=== PATIENT | male | born 1945 | race Caucasian/White ===

== ENCOUNTER 2016-09-03 18:50 | Emergency (ER) | payer MEDICARE, BC ==
[2016-09-03 19:27] LABS: BASOPHILS 0.1 % (0-2); EOSINOPHILS 2.8 % (0-7); HEMATOCRIT 48.7 % (42.0-54.0); HEMOGLOBIN 16.3 g/dL (13.5-17.5); LYMPHOCYTES 32.7 % (15-50); MCH 31.8 pg (26.0-34.0); MCHC 33.5 g/dL (31.0-37.0); MCV 94.9 fL (80.0-100.0); MEAN PLATELET VOLUME 9.9 fL (7.4-10.4); MONOCYTES 7.5 % (2-11); NEUTROPHILS 56.9 % (40-80); PLATELET COUNT 191 10x3/uL (130-400); RBC 5.13 10x6/uL (4.20-6.10); RDW 12.5 % (11.5-14.5); WBC 7.4 10x3/uL (4.8-10.8)
[2016-09-03 19:43] LABS: ALBUMIN 4.4 g/dL (3.4-5.0); ANION GAP 9.5 mmol/L (8-16); BILIRUBIN - TOTAL 0.45 mg/dL (0.2-1.3); CALCIUM 9.3 mg/dL (8.5-10.1); CARBON DIOXIDE 31.5 mmol/L (21.0-32.0); CREATININE - SERUM 1.2 mg/dL (0.6-1.3)
[2016-09-03 19:48] LABS: APPEARANCE CLEAR (CLEAR); BILIRUBIN NEGATIVE (NEGATIVE); COLOR YELLOW (YELLOW); GLUCOSE NEGATIVE (NEGATIVE); KETONE NEGATIVE (NEGATIVE); LEUKOCYTE ESTERASE NEGATIVE (NEGATIVE); NITRITE NEGATIVE (NEGATIVE); PH 7.5 (5.0-6.0); PROTEIN 1+ mg/dL (NEGATIVE); UROBILINOGEN NORMAL (NORMAL); WHITE CELLS - URINE NSEEN /hpf (0-5)
== END 2016-09-03 20:31 | disposition home or self-care (01) ==
LOC: D.ER 18:50
PROVIDERS: Emergency Medicine
DX: N20.1 Calculus of ureter (principal); R30.0 Dysuria; R31.9 Hematuria, unspecified

== ENCOUNTER 2016-09-17 13:13 | Day surgery (SDC) | payer MEDICARE, BC ==
[2016-09-17 11:18] LABS: APPEARANCE CLOUDY (CLEAR); COLOR YELLOW-RED (YELLOW); GLUCOSE 250 mg/dL (NEGATIVE); LEUKOCYTE ESTERASE 1+ (NEGATIVE); NITRITE NEGATIVE (NEGATIVE); PROTEIN 1+ mg/dL (NEGATIVE); SPECIFIC GRAVITY 1.015 (1.005-1.020)
[2016-09-17 11:19] LABS: BACTERIA MODERATE /hpf (NONE SEEN); BILIRUBIN NEGATIVE (NEGATIVE); EPITHELIAL CELLS RARE /hpf (0-5); KETONE NEGATIVE (NEGATIVE); MUCUS <1+ /lpf (NONE SEEN); RED CELLS - URINE >50 /hpf (0-5)
[2016-09-17 11:21] LABS: BASOPHILS 0.1 % (0-2); EOSINOPHILS 0.8 % (0-7); HEMATOCRIT 47.5 % (42.0-54.0); HEMOGLOBIN 15.7 g/dL (13.5-17.5); IMMATURE GRANULOCYTES 0.2 % (0-5); LYMPHOCYTES 17.3 % (15-50); MCH 31.6 pg (26.0-34.0); MCHC 33.1 g/dL (31.0-37.0); MCV 95.6 fL (80.0-100.0); MEAN PLATELET VOLUME 9.9 fL (7.4-10.4); NEUTROPHILS 69.6 % (40-80); PLATELET COUNT 191 10x3/uL (130-400); RBC 4.97 10x6/uL (4.20-6.10); RDW 12.5 % (11.5-14.5); WBC 10.9 10x3/uL (4.8-10.8)
[2016-09-17 11:39] LABS: ALBUMIN 3.7 g/dL (3.4-5.0); ANION GAP 10.7 mmol/L (8-16); BILIRUBIN - TOTAL 1.23 mg/dL (0.2-1.3); CARBON DIOXIDE 30.2 mmol/L (21.0-32.0); CREATININE - SERUM 1.9 mg/dL (0.6-1.3); POTASSIUM - SERUM 3.9 mmol/L (3.5-5.1); PROTEIN - SERUM 7.4 g/dL (6.4-8.2)
[2016-09-17] MEDS ORDERED: FLOMAX0.4 MG PO (17:42)
[2016-09-17] MEDS ORDERED: HYDROCODON-ACE1 EAC7 PO (17:43)
--- NOTE | 2016-09-17 17:45 | NUR ---
PATIENT WALKS TO BATHROOM WITH STAND-BY NURSING ASSISTANCE, URINATES LARGE AMOUNT PINK URINE IN TOILET, WALKS BACK TO BED. LEFT HAND PIV DC'D WITH TIP INTACT. PATIENT DRESSING IN PERSONAL CLOTHING WITH SPOUSE ASSISTING
--- NOTE | 2016-09-17 18:00 | NUR ---
PATIENT SITTING ON SIDE OF BED, DRESSED IN PERSONAL CLOTHING. DISCHARGE INSTRUCTIONS REVIEWED WITH PATIENT AND SPOUSE. DISCHARGED HOME VIA WHEELCHAIR TO PRIVATE VEHICLE
--- NOTE | 2016-09-18 08:42 | OP ---
PATIENT NAME: RANJEET REED MEDICAL RECORD: [id number] :47 LOCATION:[facility]- ADMISSION DATE:09/17/16 SURGEON: MJ HAZEL MD DATE OF OPERATION: 09/17/2016 SURGEON: Mj Hazel MD ANESTHESIA: General anesthesia by Amarjit aM CRNA PREOPERATIVE DIAGNOSIS: Left distal ureteral stone, 4 mm. PROCEDURE: Cystoscopy, left ureteroscopy and stone extraction, left ureteral stent insertion 6-Portuguese x 26 cm with string attached. FINDINGS: Radiodense left distal ureteral 4 mm stone. SPECIMENS: Left ureteral stone. ESTIMATED BLOOD LOSS: None. CLINICAL HISTORY: This is a patient is a 71-year-old male with a prior history of kidney stones, which up to now been on the right side. These have all been treated by Dr. Hsieh. The patient has just returned from a trip to [place]. He has been suffering with left-sided flank pain radiating to the testicle for 1 week. One week ago, he came to the Emergency Room and a CT scan showed a stone in the left ureter. It was reported as 4 mm in size. He was given pain medications and Flomax. Today, he could not tolerate the pain. He called Dr. Hsieh' s office and Dr. Hsieh is away on vacation. The patient therefore called my office. He came to the Emergency Room and a repeat CT scan showed that the stone has migrated to the distal ureter where it is causing edema. He does have bilateral renal stones, which are 2-3 mm in size, nonobstructive. There are also gallstones noted. He comes now to have the ureteral stone removed by ureteroscopy. He has no allergies to medication. He was given Ancef 1 gram IV control room helper to the OR. DESCRIPTION OF PROCEDURE: The patient was given induction of general anesthesia. He was placed in dorsal lithotomy position, prepped and draped. A 21-Portuguese cystoscope was used with 30-degree lens for visualization. I did dilate the urethral meatus to 26-Portuguese using male sounds. Penile urethra was normal. 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 Inside the bladder, there were single ureteral orifices. There is mild trabeculation of the bladder. No bladder tumors were seen. We introduced an open-ended ureteral catheter into the left ureteral orifice. On fluoroscopy, we could see the stone as radiodensity. The ureteral catheter ended-up against the stone. A Glidewire was able to get around the stone and up into the renal pelvis. This allowed us to push the ureteral catheter and farther and moved the stone proximally somewhat. With the ureteral catheter in the left ureteral orifice and part way up the left ureter, we then exchanged a Sensor wire for the Glidewire. Once the Sensor wire was in place in the renal pelvis, we then removed the open-ended ureteral catheter entirely. A 21-Portuguese x 4 cm ureteral dilation balloon was inserted into the left ureteral orifice. The balloon was inflated with 18 atmospheres of pressure. The pressure was maintained for only a few seconds and then the balloon was deflated entirely and withdrawn. Because of the patient's obstructive prostate, I did not want to traumatize his urethra. The wire was OPERATIVE REPORT [id number] RANJEET REED left in place while the cystoscope lens was removed. The cystoscope sheath remained in place. We then inserted the rigid ureteroscope and going beside the wire, we could identify the stone in the ureter. A 4-wire basket was placed around the stone and the stone basket and scope were removed as a unit. The stone was sent to pathology for stone analysis. We then backloaded the wire into the cystoscope. The ureteral stent was inserted into position. The wire was then withdrawn entirely once the stent was in correct position. The distal end of the stent was pushed into the bladder using the pusher. The bladder was then completely emptied and the cystoscope removed. The string on the distal end of the stent is maintained. It hangs from the urethral meatus. The string was tied to itself in a knot and cut shorter. The patient was awakened and brought to recovery room. He will be discharge home today with a prescription for [place] and Flomax. I will see him in followup in about 3 days' time in the office to remove the stent by pulling on the string. TRANSINT:[id number] Voice Confirmation ID: [id number] DOCUMENT ID: [id number] MJ HAZEL MD at 0842 CC: [id number] DICTATION DATE: 09/17/16 1557 VISITING TEACHER: 09/18/16 0010 DIS IN 09/17/16 [facility] [address] [place] [address]
== END 2016-09-17 18:00 | disposition home or self-care (01) ==
LOC: OBSVTIME → D.OPS 13:13 → D.MS 13:34 → D.ER 13:34 → OBSVTIME 13:34 → EDSTATUS 15:00 → D.ER 15:09 → D.SDCHOLD 16:19 → D.MS 16:19 → D.OPS 18:00 → D.SDCHOLD 18:00
PROVIDERS: Emergency Medicine; Urology
DX: N20.1 Calculus of ureter (principal); Z87.442 Personal history of urinary calculi; E03.9 Hypothyroidism, unspecified; K57.30 Diverticulosis of large intestine without perforation or abscess without bleeding; K80.20 Calculus of gallbladder without cholecystitis without obstruction; Z01.812 Encounter for preprocedural laboratory examination

== ENCOUNTER 2016-09-24 05:30 | Day surgery (SDC) | payer MEDICARE, BC ==
[2016-09-23 13:55] LABS: HEMATOCRIT 46.3 % (42.0-54.0); HEMOGLOBIN 14.7 g/dL (13.5-17.5); MCH 31.2 pg (26.0-34.0); MCHC 31.7 g/dL (31.0-37.0); MCV 98.3 fL (80.0-100.0); RBC 4.71 10x6/uL (4.20-6.10); RDW 12.2 % (11.5-14.5)
[~2016-09-24] VITALS: Ht 185.4 cm; Wt 84.8 kg
[~2016-09-24 05:30] MED LIST: FISH OIL 1,2001 CAP PO; FLOMAX0.4 MG PO; HYDROCODON-ACE1 EAC7 PO; LEVOTHYROXINE75 MCG PO; VITAMIN B COMPL1 TAB PO
[2016-09-24 13:07] VITALS: BP 137/69; Ht 185.4 cm; Wt 84.8 kg
--- NOTE | 2016-09-24 15:40 | NUR ---
PATIENT IS DRESSED IN PERSONAL CLOTHING AND HAS NO COMPLAINTS, DISCHARGE INSTRUCTIONS REVIEWED AND GIVEN, DISCHARGED HOME VIA WHEELCHAIR TO PRIVATE VEHICLE WITH SPOUSE
== END 2016-09-24 15:40 | disposition home or self-care (01) ==
LOC: D.OPS 05:30 → D.PAN 14:00 → D.OPS 15:40
PROVIDERS: Anesthesiology
DX: N20.1 Calculus of ureter (principal); K21.9 Gastro-esophageal reflux disease without esophagitis; Z01.812 Encounter for preprocedural laboratory examination

== ENCOUNTER → 2016-11-04 09:57 | Outpatient (CLI) | payer MEDICARE, BC ==
[2016-09-24 13:07] VITALS: BMI 24.7
[2016-11-04 10:46] LABS: CALC OSMOLALITY 280 mosm/kg (275-300); CALCIUM 8.3 mg/dL (8.5-10.1); CARBON DIOXIDE 31.2 mmol/L (21.0-32.0); CHLORIDE - SERUM 105 mmol/L (98-107); CREATININE - SERUM 0.9 mg/dL (0.6-1.3); GLUCOSE 136 mg/dL (74-106); POTASSIUM - SERUM 4.2 mmol/L (3.5-5.1); SODIUM 139 mmol/L (136-145); UREA NITROGEN 15 mg/dL (7-18); eGFR NON AFRICAN AMERICAN 89 mL/min (90-120)
== END | disposition home or self-care (01) ==
LOC: D.LAB 09:57
PROVIDERS: Urology
DX: E21.3 Hyperparathyroidism, unspecified (principal)

== ENCOUNTER → 2018-07-06 10:07 | Outpatient (CLI) | payer MEDICARE, BC ==
[2016-09-24 13:07] VITALS: BMI 24.7
== END | disposition home or self-care (01) ==
LOC: D.HCCARDIO 10:07
PROVIDERS: ATTEND Internal Medicine Cardiovascular Disease
DX: R07.9 Chest pain, unspecified (principal); I20.9 Angina pectoris, unspecified

== ENCOUNTER 2018-07-22 10:59 | Outpatient (CLI) | payer MEDICARE, BC ==
[~2018-07-22] VITALS: Ht 185.4 cm; Wt 84.1 kg
--- NOTE | ~2018-07-22 | HEMODYNAMI ---
PATIENT:RANJEET REED MEDICAL RECORD: [id number] : 47 [facility] ADMISSION DATE: 07/22/18 Generatedon:07/22/201814:01 Patient name: RANJEET REED Patient #: [id number] SSN: DO B: 1945 Date of study: 07/22/2018 Page: Of Hemodynamic Procedure Report Patient Data Patient Demographics Procedure consent was obtained First Name: RANJEET Gender: Male Last Name: DEREK : 1945 Middle Initial: E Age: 73 year(s) Patient #: [id number] Race: Unknown Additional ID: [id number] Contact details [address]: [address] [place] [address] State: [place] City: [place] Zip code: [address] Admission Admission Data Admission Date: 07/22/2018 Admission Time: 10:59 Procedure Procedure Types Cath Procedure Diagnostic Procedure LHC LHC w/Coronaries FFR/IVUS Intra-Coronary IVUS Initial Sedation Charges Moderate Sedation up to 15 minutes Procedure Description Procedure Date Procedure Date: 07/22/2018 Procedure Start Time: 13:19 Procedure End Time: 13:57 Procedure Staff Name Function Ellis Cardoso MD Performing Physician Cheri Katz RT Monitor Casey Flores RT Scrub Isaias Eisenberg RN Nurse Procedure Data Cath Procedure Fluoroscopy Diagnostic fluoroscopy Total fluoroscopy Time: 3.7 time: 3.7 min min Diagnostic fluoroscopy Total fluoroscopy dose: 766 dose: 766 mGy mGy Contrast Material Contrast Material Type Amount (ml) Isovue 300 96 Entry Location Entry Primary Successful Side Size Upsize Upsize Entry Closure Succes sful Closure Location (Fr) 1 (Fr) 2 (Fr) Remarks Device Remarks Femoral Right 5 Fr 6 Fr Exoseal artery Short Estimated blood loss: 5 ml Diagnostic catheters Device Type Used For End Catheter Placement DIAGNOSTIC AR MOD 5Fr Multi-vessel Catheter ([id number]) Angiography Procedure Complications No complications Procedure Medications Medication Administration Route Dosage Oxygen etCO2 Nasal cannula 2 l/min Lidocaine 2% added to field 20 Heparin Flush Bag added to field 2 bags (1000units/500ml NS) 0.9% NaCl I.V. 100 ml/hr Radial Cocktail added to field 1 syringe (Verapomil 2mg/Nitro 400mcg/Heparin 1500units) Versed I.V. 1 mg Fentanyl I.V. 50 mcg Versed I.V. 1 mg Fentanyl I.V. 50 mcg Heparin Bolus I.V. 5000 units Hemodynamics Rest Heart Rate: 56 (bpm) Pressure Samples Time Site Value (mmHg) Purpose Heart Use Rate(bpm) 13:33 LV 200/3,40 Snapshot 70 Snapshots Pre Cath Intra NCS Post Cath Vital Signs Time Heart Resp SPO2 etCO2 NIBP (mmHg) Rhythm Pain Sedation Rate (ipm) (%) (mmHg) Status Level (bpm) 13:07:28 52 16 100 0 163/85(108) NSR 0 (11) 10(A) , No pain 13:12:44 53 13 94 26.8 167/91(116) NSR 0 (11) 10(A) , No pain 13:17:04 54 11 96 0 153/82(105) NSR 0 (11) 9(A) , No pain 13:21:22 54 12 96 0 153/75(96) NSR 0 (11) 9(A) , No pain 13:25:40 55 10 97 0 153/76(135) NSR 0 (11) 9(A) , No pain 13:29:52 57 11 93 0 155/89(120) NSR 0 (11) 9(A) , No pain 13:34:10 60 10 96 0 148/80(114) NSR 0 (11) 9(A) , No pain 13:38:24 59 11 97 0 147/82(126) NSR 0 (11) 9(A) , No pain 13:42:40 59 12 97 46.2 153/75(97) NSR 0 (11) 9(A) , No pain 13:46:54 59 12 98 29.8 145/83(102) NSR 0 (11) 9(A) , No pain 13:51:08 59 12 98 40.3 147/75(138) NSR 0 (11) 9(A) , No pain 13:56:15 57 12 98 25.3 145/78(92) NSR 0 (11) 10(A) , No pain Medications Time Medication Route Dose Verified Delivered Reason Not es Effectiveness by by 13:07:52 Oxygen etCO2 2 l/min Ellis Buffie used for Nasal Phoenix Eisenberg RN procedure cannula 13:08:00 Lidocaine 2% added 20ml Ellis Buffie used for to vial Phoenix Eisenberg RN procedure field 13:08:10 Heparin Flush added 2 bags Ellis Buffie used for Bag to Phoenix Eisenberg RN procedure (1000units/500ml field NS) 13:08:21 0.9% NaCl I.V. 100 Ellis Buffie Per physician ml/hr Phoenix Eisenberg RN 13:08:30 Radial Cocktail added 1 Ellis Ellis for was robert. (Verapomil to syringe Phoenix Cardoso MD vasodilation 2mg/Nitro field 400mcg/Heparin 1500units) 13:08:42 Versed I.V. 1 mg Ellis Buffie for sedation Phoenix Eisenberg RN 13:08:47 Fentanyl I.V. 50 mcg Ellis Buffie for sedation Phoenix Eisenberg RN 13:11:43 Versed I.V. 1 mg Ellis Buffie for sedation Phoenix Eisenberg RN 13:11:47 Fentanyl I.V. 50 mcg Ellis Buffie for sedation Phoenix Eisenberg RN 13:44:20 Heparin Bolus I.V. 5000 Ellis Buffie for for IVUS units Phoenix Eisenberg RN anticoagulation , verified with dr cardoso Procedure Log Time Note 12:48:30 Diagnostic Cath Status : Elective 12:48:58 Cheri Katz RT(R) sent for patient. Start room use. 12:48:59 Time tracking: Regular hours (M-F 7:00 - 5:00) 12:49:04 Plan of Care:Hemodynamics will remain stable., Cardiac rhythm will remain stable., Comfort level will be maintained., Respiratory function will remain adequate., Patient/ family verbilizes understanding of procedure., Procedure tolerated without complication., Recovers from procedure without complications.. 13:07:13 Patient received from Pre/Post Procedure Room to CCL 2 Alert and oriented. Tansferred to table in Supine position. 13:07:14 Warm blankets applied, and luna hugger turned on for patient comfort. 13:07:15 Correct patient and procedure confirmed by team. 13:07:16 Signed procedure consent form obtained from patient. 13:07:17 ECG and BP/O2 sat monitors applied to patient. 13:07:18 Vital chart was started 13:07:19 Baseline sample Acquired. 13:07:22 Rhythm: sinus rhythm 13:07:24 Full Disclosure recording started 13:07:28 H&P Date Dictated: 07/22/2018 Within 30 days and on chart., H&P Addendum completed by physician on day of procedure. (MUST COMPLETE FOR ALL OUTPATIENTS). 13:07:29 Pre-procedure instructions explained to patient. 13:07:30 Pre-op teaching completed and patient verbalized understanding. 13:07:32 Family in patients room. 13:07:34 Patient NPO since Midnight. 13:07:35 Is the patient allergic to Iodine/contrast media? No. 13:07:36 Was the patient premedicated? No 13:07:37 Is patient on blood thinner?No 13:07:44 Patient diabetic? No. 13:07:47 Previous problem with sedation/anesthesia? No ? 13:07:48 Snore? Yes 13:07:49 Sleep apnea? No 13:07:50 Deviated septum? No 13:07:51 Opens mouth fully? Yes 13:07:51 Sticks out tongue? Yes 13:07:52 Oxygen 2 l/min etCO2 Nasal cannula was administered by Isaias Eisenberg RN; used for procedure; 13:07:53 Airway obstruction? No ? 13:07:56 Dentures? No ? 13:07:59 Pre procedure: right dorsailis pedis pulse 2+ Normal; easily identifiable; not easily obliterated 13:08:00 Lidocaine 2% 20ml vial added to field was administered by Isaias Eisenberg RN; used for procedure; 13:08:01 Pre procedure: left dorsailis pedis pulse 2+ Normal; easily identifiable; not easily obliterated 13:08:03 Patient pain scale 0/10 ?. 13:08:08 IV patent on arrival in left forearm with 0.9% NaCl at [facility]. 13:08:10 Heparin Flush Bag (1000units/500ml NS) 2 bags added to field was administered by Isaias Eisenberg RN; used for procedure; 13:08:10 Lab results completed and on chart. 13:08:16 Right Radial & Right Groin area was prepped with chlora-prep and draped in sterile fashion 13:08:17 Alarms reviewed by R. N. 13:08:18 Sharps counted by scrub and verified by R.N. 13:08:19 Physician arrived 13:08:20 --------ALL STOP TIME OUT------ 13:08:20 Final Timeout: patient, procedure, and site verified with staff and physician. All members of the team are in agreement. 13:08:21 0.9% NaCl 100 ml/hr I.V. was administered by Isaias Eisenberg RN; Per physician; 13:08:22 Right Radial & Right Groin site verified by team. 13:08:26 Maximum allowable Isovue 300 dose 300ml. Physician notified. (300ml for normal creatinines. For patients with creatinine of 1.7 or higher multiply weight(kg) x 5 divided by creatinine.) 13:08:29 Fire Safety Assessment: A--An alcohol-based skin anteseptic being used preoperatively., C--Open oxygen or nitrous oxide is being used., D--An ESU, laser, or fiber-optic light is being used. 13:08:30 Radial Cocktail (Verapomil 2mg/Nitro 400mcg/Heparin 1500units) 1 syringe added to field was administered by Ellis Cardoso MD; for vasodilation; wasted. 13:08:33 Physical assessment completed. ASA score P 2 - A patient with mild systemic disease as per Ellis Cardoso MD. 13:08:37 Sedation plan: IV Moderate Sedation Medication:Versed, Fentanyl 13:08:41 Use device set Radial Dx or PCI 13:08:42 Versed 1 mg I.V. was administered by Isaias Eisenberg RN; for sedation; 13:08:42 ACIST Syringe (82482) opened to sterile field. 13:08:42 Medline Cath Pack ([id number]) opened to sterile field. 13:08:43 Bag Decanter (2002) opened to sterile field. 13:08:43 DIAGNOSTIC WIRE .035 260cm J wire (580896) opened to sterile field. 13:08:43 ACIST Hand Control (03917) opened to sterile field. 13:08:44 ACIST Manifold (38464) opened to sterile field. 13:08:44 Tegaderm 4 x 4 (1626W) opened to sterile field. 13:08:45 MBrace Wrist Support ([id number]) opened to sterile field. 13:08:45 NEEDLE Cook 21G 4cm Radial (S80640) opened to sterile field. 13:08:47 Fentanyl 50 mcg I.V. was administered by Isaias Eisenberg RN; for sedation; 13:08:47 SHEATH 6FR Slender (48-5796) opened to sterile field. 13:10:57 Zero performed for pressure channel P1 13:11:43 Versed 1 mg I.V. was administered by Isaias Eisenberg RN; for sedation; 13:11:47 Fentanyl 50 mcg I.V. was administered by Isaias Eisenberg RN; for sedation; 13:18:55 Procedure started. 13:19:00 Local anesthetic to right radial artery with Lidocaine 2% by Ellis Cardoso MD.INITIAL ACCESS ONLY 13:25:15 unable to gain radial access; preparing for femoral access 13:25:48 Local anesthetic to right femoral artery with Lidocaine 2% by Ellis Cardoso MD.ADDITIONAL ACCESS 13:26:14 A 5 Fr sheath was inserted into the Right Femoral artery 13:26:52 DIAGNOSTIC Multipack 5Fr catheter set (HR8497) opened to sterile field. 13:26:53 SHEATH 5FR Lincoln (UEU201) opened to sterile field. 13:27:26 5 Fr jl 4 guide catheter was inserted over the wire 13:28:34 LCA angiography performed. 13::55 Injector settings: Ml/sec: 3, Volume: 6, 13:30:01 Catheter removed. 13:30:39 A DIAGNOSTIC AR MOD 5Fr Catheter (109444A) was advanced over the wire and used for Multi-vessel Angiography. 13:31:24 RCA angiography performed. 13:31:27 Injector settings: Ml/sec: 3, Volume: 6, 13:33:02 Catheter removed. 13:33:13 5 Fr pigtail guide catheter was inserted over the wire 13:33:26 LV hemodynamics recorded. 13:33:27 LV gram done using SAENZ 13:33:30 Injector settings: Ml/sec: 5, Volume: 15, 13:33:38 EF : 50 % 13:34:18 Catheter removed. 13:34:19 Proceeding to intervention. 13:34:52 SHEATH 6FR Lincoln (XJY576) opened to sterile field. 13:34:53 TUBING High Pressure Extension Tubing ([place]) (UT6145U) opened to sterile field. 13:34:54 BMW 300cm Saxon 2 J wire ([id number]) opened to sterile field. 13:34:55 INFLATOR Merit BasixCompak (HI5861) opened to sterile field. 13:42:09 [place] Eagleye IVUS Catheter (85549V) opened to sterile field. 13:44:20 Heparin Bolus 5000 units I.V. was administered by Isaias Eisenberg RN; for anticoagulation; for IVUS , verified with dr cardoso 13:45:37 Sheath upsized to a 6 Fr Short. 13:45:52 6 Fr xblad 3.5 guide catheter was inserted over the wire 13:46:17 GUIDE 6FR XBLAD 3.5 catheter ([id number]) opened to sterile field. 13:46:34 bmw wire advanced. 13:46:38 Wire advanced across lesion. 13:46:43 IVUS catheter advanced over wire. 13:46:45 IVUS pass to LAD lesion performed. 13:52:07 IVUS catheter removed over wire. 13:52:18 Wire removed. 13:52:18 Guide catheter removed. 13:53:32 EXOSEAL 6Fr (EX600) opened to sterile field. 13:54:22 Sheath removed intact; hemostasis achieved with Exoseal to the Right Femoral artery. 13:55:10 Procedure ended.(Physican Out) 13:56:27 Fluoroscopy time 03.70 minutes. 13:56:35 Fluoroscopy dose: 766 mGy 13:56:35 Flurop Dose total: 766 13:56:54 Contrast amount:Isovue 300 96ml. 13:56:55 Sharps counted by scrub and verified by R.N. 13:56:57 Insertion/operative site no bleeding no hematoma. 13:57:05 Post-op/insertion site Right Femoral artery dressed using a 4 x 4 and Tegaderm. 13:57:07 Post Procedure Pulses reassessed and unchanged 13:57:09 Post procedure rhythm: unchanged. 13:57:12 Estimated blood loss: 5 ml 13:57:13 Post procedure instruction explained to patient.Patient verbalizes understanding. 13:57:14 Patient needs reinforcement of post procedure teaching. 13:57:25 Procedure type changed to Cath procedure, Diagnostic procedure, LHC, LHC w/Coronaries, FFR/IVUS, Intra-Coronary IVUS Initial, Sedation Charges, Moderate Sedation up to 15 minutes 13:57:28 Procedure and supply charges have been captured, reviewed, submitted and are correct. 13:57:33 Procedure Complication : No complications 13:57:36 Vital chart was stopped 13:57:38 See physician's report for complete and final results. 13:57:40 Report given to Pre/Post Procedure Room. 13:57:43 Patient transfered to Pre/Post Procedure Room with Stretcher. 13:57:47 Procedure ended. 13:57:48 Full Disclosure recording stopped 13:57:51 End room use (Document Last) Device Usage Item Name Manufacture Quantity Catalog Hospital Part Current Minimal Lot# / Number Charge Number Stock Stock Serial# Code ACIST Acist 1 58277 151615 461153 534604 20 Syringe Medical (83859) Systems Inc Medline Medline 1 [id number] 727168 66233 875418 5 Cath Pack ([id number]) Bag Microtek 1 2001S 031510 03976 745177 5 Decanter Medical Inc. () DIAGNOSTIC St Nirmal 1 987376 333989 627009 030291 30 WIRE .035 260cm J wire (715814) ACIST Hand Acist 1 32029 488026 489576 891351 5 Control Medical (31841) Systems Inc ACIST Acist 1 95191 151974 218798 786832 5 Manifold Medical (48741) Systems Inc Tegaderm 4 3M 1 1626W 658826 755151 980734 5 x 4 (1626W) MBrace Advanced 1 140-0250-00 172150 78747 535731 5 Wrist Vascular Support Dynamics ([id number]) NEEDLE Cook Cook Medical 1 F76965 386108 738049 104827 5 21G 4cm Radial (B26057) SHEATH 6FR Terumo 1 [id number] 390484 589675 916603 5 Slender (80-1060) DIAGNOSTIC Cardinal 1 ZM9840 438870 96141 725991 30 [facility] Lights 5Fr catheter set (RZ8271) SHEATH 5FR Terumo 1 JCZ771 490889 382520 164689 5 Lincoln (LAU441) DIAGNOSTIC Cardinal 1 [id number] 556454 855728 054351 15 AR MOD 5Fr Health Catheter (545204Q) SHEATH 6FR Terumo 1 IPL683 518311 997341 066565 40 Lincoln (DPS429) TUBING High Merit 1 AM7357G 041707 80655 057379 10 Pressure Medical Extension Tubing (Cardoso) (PF5129Q) BMW 300cm Wall 1 [id number] 466392 101609 624766 5 Saxon 2 Vascular J wire (1862160M) INFLATOR Merit 1 JK3791 469780 342098 925631 15 Merit Medical BasixCompak (KC9854) Amarillo [place]arillo 1 91157B 675896 918043 957161 8 [place] Eagleye IVUS Catheter (70966G) GUIDE 6FR Cardinal 1 10675962 216039 881035 027857 10 XBLAD 3.5 Health catheter (09825611) EXOSEAL 6Fr Cardinal 1 EX600 526166 284259 501070 10 (EX600) Health Signature Audit [place] Stage Time Signature Unsigned Intra-Procedure 07/22/2018 Cheri Katz 2:01:27 PM RT(R) Signatures Monitor : Cheri Katz RT Signature : Date : Time : [place] [place] [address]
[2018-07-22 11:27] VITALS: BP 171/71; Ht 185.4 cm; Wt 84.1 kg
[2018-07-22 11:41] LABS: BASOPHILS 0.2 % (0-2); EOSINOPHILS 3.1 % (0-7); HEMATOCRIT 44.1 % (42.0-54.0); HEMOGLOBIN 15.3 g/dL (13.5-17.5); IMMATURE GRANULOCYTES 0.2 % (0-5); LYMPHOCYTES 47.9 % (15-50); MCHC 34.7 g/dL (31.0-37.0); MCV 92.3 fL (80.0-100.0); MEAN PLATELET VOLUME 9.8 fL (7.4-10.4); MONOCYTES 8.2 % (2-11); NEUTROPHILS 40.4 % (40-80); PLATELET COUNT 198 10x3/uL (130-400); RBC 4.78 10x6/uL (4.20-6.10); RDW 12.8 % (11.5-14.5); WBC 6.1 10x3/uL (4.8-10.8)
[2018-07-22 11:49] LABS: CALC OSMOLALITY 287 mosm/kg (275-300); CARBON DIOXIDE 29.2 mmol/L (21.0-32.0); CHLORIDE - SERUM 106 mmol/L (98-107); CREATININE - SERUM 0.9 mg/dL (0.6-1.3); GLUCOSE 112 mg/dL (74-106); SODIUM 143 mmol/L (136-145); UREA NITROGEN 17 mg/dL (7-18); eGFR NON AFRICAN AMERICAN 88 mL/min (90-120)
--- NOTE | 2018-07-22 14:35 | NUR ---
PT RESTING COMFORTABLY. RIGHT GROIN DRESSING C/D/I. NO S/S OF HEMATOMA NOTED. FAMILY AT BEDSIDE. VSS.
--- NOTE | 2018-07-22 15:05 | NUR ---
RIGHT GROIN DRESSING C/D/I. NO S/S OF HEMATOMA NOTED. VSS. FAMILY AT BEDSIDE.
--- NOTE | 2018-07-22 15:40 | NUR ---
RIGHT GROIN DRESSING C/D/I. NO S/S OF HEMATOMA NOTED. VSS. FAMILY AT BEDSIDE. PT TOLERATING SIPS OF WATER. DENIES NAUSEA.
--- NOTE | 2018-07-22 16:19 | NUR ---
DR. SIMMONS ROUNDED AND SPOKE WITH PT'S FAMILY AGAIN. HE WAS ABLE TO ANSWER ALL THEIR QUESTIONS.
--- NOTE | 2018-07-22 17:00 | NUR ---
RIGHT GROIN DRESSING C/D/I. NO S/S OF HEMATOMA NOTED. RIGHT PEDAL PULSE PALPABLE. VSS. HEAD OF BED INC TO 30 DEGREES. TOLERATED WELL. SET UP WITH SANDWICH TRAY AND DRINK. DENIES NAUSEA AT THIS TIME. FAMILY AT BEDSIDE.
--- NOTE | 2018-07-22 17:11 | NUR ---
DISCUSSED DISCHARGE INSTRUCTIONS WITH PT AND PT'S FAMILY. THEY VOICED UNDERSTANDING. VSS.
--- NOTE | 2018-07-22 17:41 | NUR ---
LEFT FA PIV D/C'D WITH CATH TIP INTACT. PT TOLERATED WELL. RIGHT GROIN DRESSING C/D/I. NO S/S OF HEMATOMA NOTED. PT INSTRUCTED TO GET DRESSED. THEY HAVE NO QUESTIONS REGARDING DISCHARGE INSTRUCTIONS.
--- NOTE | 2018-07-22 17:50 | NUR ---
PT TAKEN TO RESTROOM BY WHEELCHAIR. VOIDED WITHOUT DIFFICULTY. TAKEN TO VEHICLE. ALL BELONGINGS IN HAND. NO S/S OF DISTRESS NOTED.
== END 2018-07-22 17:50 | disposition home or self-care (01) ==
LOC: D.CATH 10:59
PROVIDERS: ATTEND Internal Medicine Cardiovascular Disease
DX: I25.110 Atherosclerotic heart disease of native coronary artery with unstable angina pectoris (principal); R94.30 Abnormal result of cardiovascular function study, unspecified

== ENCOUNTER 2018-07-25 19:35 | Inpatient (IN) | payer MEDICARE, BC ==
[~2018-07-25] VITALS: Ht 185.4 cm; Wt 85.0 kg
[2018-07-25 20:09] LABS: BASOPHILS 0.2 % (0-2); EOSINOPHILS 2.4 % (0-7); HEMATOCRIT 42.5 % (42.0-54.0); HEMOGLOBIN 14.8 g/dL (13.5-17.5); LYMPHOCYTES 35.7 % (15-50); MCH 31.8 pg (26.0-34.0); MCHC 34.8 g/dL (31.0-37.0); MCV 91.2 fL (80.0-100.0); MEAN PLATELET VOLUME 9.7 fL (7.4-10.4); MONOCYTES 7.6 % (2-11); NEUTROPHILS 54.1 % (40-80); PLATELET COUNT 210 10x3/uL (130-400); RBC 4.66 10x6/uL (4.20-6.10); RDW 12.6 % (11.5-14.5); WBC 6.3 10x3/uL (4.8-10.8)
[2018-07-25 20:17] LABS: INR 1.01 (0.85-1.17); PROTIME 12.8 SECONDS (11.6-15.0)
[2018-07-25 20:24] LABS: ALBUMIN 3.7 g/dL (3.4-5.0); ALKALINE PHOSPHATASE 63 U/L (46-116); ALT (SGPT) 26 U/L (10-68); BILIRUBIN - TOTAL 0.49 mg/dL (0.2-1.3); CALC OSMOLALITY 287 mosm/kg (275-300); CALCIUM 9.2 mg/dL (8.5-10.1); CARBON DIOXIDE 30.5 mmol/L (21.0-32.0); CHLORIDE - SERUM 105 mmol/L (98-107); CREATININE - SERUM 0.9 mg/dL (0.6-1.3); GLUCOSE 151 mg/dL (74-106); POTASSIUM - SERUM 3.8 mmol/L (3.5-5.1); PROTEIN - SERUM 6.9 g/dL (6.4-8.2); SODIUM 142 mmol/L (136-145); UREA NITROGEN 17 mg/dL (7-18); eGFR NON AFRICAN AMERICAN 88 mL/min (90-120)
[2018-07-25 20:36] LABS: CREATINE KINASE 179 UL (21-232); MAGNESIUM - SERUM 2.2 mg/dL (1.8-2.4); TROPONIN-I 0.017 ng/mL (0.000-0.060)
[2018-07-25 21:08] VITALS: BP 162/78
[2018-07-25 21:47] VITALS: BP 179/93; BMI 24.4
[2018-07-25 23:00] VITALS: BP 152/72
[2018-07-26] VITALS (22 sets, daily range): BP systolic 118–161; BP diastolic 57–75
[2018-07-26 04:22] LABS: BASOPHILS 0.2 % (0-2); EOSINOPHILS 4.2 % (0-7); HEMATOCRIT 43.1 % (42.0-54.0); HEMOGLOBIN 14.8 g/dL (13.5-17.5); LYMPHOCYTES 43.9 % (15-50); MCH 31.3 pg (26.0-34.0); MCHC 34.3 g/dL (31.0-37.0); MCV 91.1 fL (80.0-100.0); MEAN PLATELET VOLUME 9.8 fL (7.4-10.4); MONOCYTES 11.1 % (2-11); NEUTROPHILS 40.6 % (40-80); PLATELET COUNT 177 10x3/uL (130-400); RBC 4.73 10x6/uL (4.20-6.10); RDW 12.5 % (11.5-14.5); WBC 5.5 10x3/uL (4.8-10.8)
[2018-07-26 04:36] LABS: ALBUMIN 3.3 g/dL (3.4-5.0); ALKALINE PHOSPHATASE 55 U/L (46-116); ALT (SGPT) 25 U/L (10-68); BILIRUBIN - TOTAL 0.76 mg/dL (0.2-1.3); CALC OSMOLALITY 285 mosm/kg (275-300); CALCIUM 8.5 mg/dL (8.5-10.1); CARBON DIOXIDE 30.5 mmol/L (21.0-32.0); CHLORIDE - SERUM 106 mmol/L (98-107); CREATININE - SERUM 0.8 mg/dL (0.6-1.3); GLUCOSE 133 mg/dL (74-106); POTASSIUM - SERUM 4.2 mmol/L (3.5-5.1); PROTEIN - SERUM 6.4 g/dL (6.4-8.2); SODIUM 142 mmol/L (136-145); UREA NITROGEN 15 mg/dL (7-18); eGFR NON AFRICAN AMERICAN > 90 mL/min (90-120)
[2018-07-26 09:26] LABS: BASOPHILS 0.2 % (0-2); EOSINOPHILS 3.2 % (0-7); HEMATOCRIT 43.5 % (42.0-54.0); HEMOGLOBIN 15.2 g/dL (13.5-17.5); IMMATURE GRANULOCYTES 0.2 % (0-5); LYMPHOCYTES 38.8 % (15-50); MCH 31.8 pg (26.0-34.0); MCHC 34.9 g/dL (31.0-37.0); MEAN PLATELET VOLUME 9.8 fL (7.4-10.4); MONOCYTES 6.8 % (2-11); NEUTROPHILS 50.8 % (40-80); PLATELET COUNT 198 10x3/uL (130-400); RBC 4.78 10x6/uL (4.20-6.10); RDW 12.6 % (11.5-14.5); WBC 6.2 10x3/uL (4.8-10.8)
[2018-07-26 09:57] LABS: INR 1.07 (0.85-1.17); PROTIME 13.4 SECONDS (11.6-15.0)
[2018-07-26 10:01] LABS: ALBUMIN 3.6 g/dL (3.4-5.0); ALKALINE PHOSPHATASE 64 U/L (46-116); ALT (SGPT) 26 U/L (10-68); CALC OSMOLALITY 283 mosm/kg (275-300); CALCIUM 8.6 mg/dL (8.5-10.1); CHLORIDE - SERUM 103 mmol/L (98-107); CHOLESTEROL, TOTAL 227 mg/dL (0-200); CREATININE - SERUM 0.9 mg/dL (0.6-1.3); GLUCOSE 164 mg/dL (74-106); PROTEIN - SERUM 6.9 g/dL (6.4-8.2); SODIUM 140 mmol/L (136-145); T4 THYROXIN - FREE 0.89 ng/dL (0.76-1.46); UREA NITROGEN 14 mg/dL (7-18); URIC ACID 4.6 mg/dL (2.6-7.2); eGFR NON AFRICAN AMERICAN 88 mL/min (90-120)
[2018-07-26 10:23] LABS: APPEARANCE CLEAR (CLEAR); BILIRUBIN NEGATIVE (NEGATIVE); COLOR STRAW (YELLOW); GLUCOSE 50 mg/dL (NEGATIVE); KETONE NEGATIVE (NEGATIVE); NITRITE NEGATIVE (NEGATIVE); PROTEIN NEGATIVE (NEGATIVE); UROBILINOGEN NORMAL (NORMAL)
[2018-07-27] VITALS (23 sets, daily range): BP systolic 99–156; BP diastolic 50–74; Ht 185.4 cm; Wt 85.0 kg
[2018-07-27 06:04] LABS: BASOPHILS 0.1 % (0-2); EOSINOPHILS 3.3 % (0-7); HEMATOCRIT 43.9 % (42.0-54.0); HEMOGLOBIN 15.1 g/dL (13.5-17.5); IMMATURE GRANULOCYTES 0.1 % (0-5); MCH 31.7 pg (26.0-34.0); MCHC 34.4 g/dL (31.0-37.0); MCV 92.2 fL (80.0-100.0); MEAN PLATELET VOLUME 9.8 fL (7.4-10.4); NEUTROPHILS 57.5 % (40-80); PLATELET COUNT 204 10x3/uL (130-400); RBC 4.76 10x6/uL (4.20-6.10); RDW 12.7 % (11.5-14.5); WBC 7.3 10x3/uL (4.8-10.8)
[2018-07-27 06:24] LABS: ALBUMIN 3.4 g/dL (3.4-5.0); ALKALINE PHOSPHATASE 58 U/L (46-116); ALT (SGPT) 28 U/L (10-68); BILIRUBIN - TOTAL 0.55 mg/dL (0.2-1.3); CALC OSMOLALITY 287 mosm/kg (275-300); CALCIUM 8.9 mg/dL (8.5-10.1); CARBON DIOXIDE 30.2 mmol/L (21.0-32.0); CHLORIDE - SERUM 106 mmol/L (98-107); GLUCOSE 132 mg/dL (74-106); POTASSIUM - SERUM 4.2 mmol/L (3.5-5.1); PROTEIN - SERUM 6.7 g/dL (6.4-8.2); SODIUM 143 mmol/L (136-145); UREA NITROGEN 14 mg/dL (7-18); eGFR NON AFRICAN AMERICAN 78 mL/min (90-120)
--- NOTE | 2018-07-27 17:22 | MORECARE ---
CASE MANAGEMENT DISCHARGE SUMMARY PATIENT: RANJEET REED UNIT: [id number] ADM DATE: 07/25/18 AGE: 73 : [birth year] SEX: M ROOM/BED: [facility] AUTHOR: REBECCADOC PHYSICIAN: REFERRING PHYSICIAN: SANTA REESE MD DATE OF SERVICE: 07/27/18 Discharge Plan Patient Name: RANJEET REED Facility: [facility]:[place] : 1945 Planned Disposition: Home Anticipated Discharge Date: Discharge Date: Expected LOS: Initial Reviewer: [email or web address] Initial Review Date: 07/27/2018 Generated: 07/27/18 6:21 pm Comments DCP- Discharge Planning Updated by [email or web address]: Reyna Bates on 07/27/18 4:[address] Patient Name: RANJEET REED Admission Status: ER Accout number: [id number] Admission Date: 07-25-2018 : 1945 Admission Diagnosis: Attending: SANTA REESE Current LOS: 2 Anticipated DC Date: Planned Disposition: Home Primary Insurance: MEDICARE A & B Discharge Planning Comments: CM met with patient and spouse (Akanksha) at bedside after explaining CM role and obtaining verbal consent. Patient lives at home with his Akanksha and plans to return there upon discharge. Patient feels this would be a safe discharge. CM discussed availability / needs of home health and medical equipment. Patient denies any discharge needs at this time. Patient states he will have his drive him home upon discharge. CM will continue to follow and assist as needed with discharge planning / needs. Belting And Webbing Inspector: Reyna Bates DCPIA - Discharge Planning Initial Assessment Updated by [email or web address]: Reyna Bates on 07/27/18 5:11 pm * Is the patient Alert and Oriented? Yes * How many steps to enter\exit or inside your home? * PCP GRISELDA * Pharmacy [facility] * Preadmission Environment Home with Family * ADLs Independent * Equipment None * List name and contact numbers for known caregivers / representatives who currently or will assist patient after discharge: AKANKSHA REED- - [phone] * Verbal permission to speak to the caregivers and representatives has been obtained from the patient. Yes * Community resources currently utilized None * Additional services required to return to the preadmission environment? No * Can the patient safely return to the preadmission environment? Yes * Has this patient been hospitalized within the prior 30 days at any hospital? No Patient Name: RANJEET REED Page 17106 at 1722 All edits/amendments must be made on the electronic document DICTATION DATE: 07/27/181720 JUNIOR SALES ASSISTANT: SANDRA 07/27/181720 RPT#: [id number] DC DATE: STATUS: ADM IN [facility] [address] [place] [address] END OF REPORT
[2018-07-28] VITALS (56 sets, daily range): BP systolic 107–142; BP diastolic 5–61
[2018-07-28 05:03] LABS: HEMATOCRIT 43.4 % (42.0-54.0); HEMOGLOBIN 14.6 g/dL (13.5-17.5); MCH 31.5 pg (26.0-34.0); MCHC 33.6 g/dL (31.0-37.0); MCV 93.7 fL (80.0-100.0); MEAN PLATELET VOLUME 9.8 fL (7.4-10.4); RBC 4.63 10x6/uL (4.20-6.10); RDW 12.7 % (11.5-14.5); WBC 6.9 10x3/uL (4.8-10.8)
[2018-07-28 05:39] LABS: ALBUMIN 3.4 g/dL (3.4-5.0); ALKALINE PHOSPHATASE 57 U/L (46-116); ALT (SGPT) 27 U/L (10-68); BILIRUBIN - TOTAL 0.42 mg/dL (0.2-1.3); CALC OSMOLALITY 290 mosm/kg (275-300); CALCIUM 8.6 mg/dL (8.5-10.1); CARBON DIOXIDE 32.4 mmol/L (21.0-32.0); CHLORIDE - SERUM 107 mmol/L (98-107); GLUCOSE 147 mg/dL (74-106); PROTEIN - SERUM 6.3 g/dL (6.4-8.2); SODIUM 144 mmol/L (136-145); UREA NITROGEN 16 mg/dL (7-18); eGFR NON AFRICAN AMERICAN 78 mL/min (90-120)
[2018-07-29] VITALS (55 sets, daily range): BP systolic 98–154; BP diastolic 45–80
[2018-07-29 06:46] LABS: ALBUMIN 2.8 g/dL (3.4-5.0); ALKALINE PHOSPHATASE 39 U/L (46-116); BILIRUBIN - TOTAL 0.63 mg/dL (0.2-1.3); CALC OSMOLALITY 293 mosm/kg (275-300); CALCIUM 7.4 mg/dL (8.5-10.1); CARBON DIOXIDE 28.1 mmol/L (21.0-32.0); CHLORIDE - SERUM 109 mmol/L (98-107); GLUCOSE 160 mg/dL (74-106); PROTEIN - SERUM 5.4 g/dL (6.4-8.2); SODIUM 145 mmol/L (136-145); UREA NITROGEN 18 mg/dL (7-18); eGFR NON AFRICAN AMERICAN 78 mL/min (90-120)
[2018-07-29 06:48] LABS: ALT (SGPT) 19 U/L (10-68); HEMATOCRIT 37.4 % (42.0-54.0); HEMOGLOBIN 12.3 g/dL (13.5-17.5); MCH 31.1 pg (26.0-34.0); MCHC 32.9 g/dL (31.0-37.0); MCV 94.4 fL (80.0-100.0); MEAN PLATELET VOLUME 9.8 fL (7.4-10.4); POTASSIUM - SERUM 4.7 mmol/L (3.5-5.1); RBC 3.96 10x6/uL (4.20-6.10); RDW 13.3 % (11.5-14.5)
[2018-07-29 06:56] LABS: WBC 15.3 10x3/uL (4.8-10.8)
--- NOTE | 2018-07-29 07:46 | OP ---
PATIENT NAME: RANJEET REED MEDICAL RECORD: [id number] :47 LOCATION:[id number] ADMISSION DATE:07/25/18 SURGEON: REFUGIO REESE MD DATE OF OPERATION: 07/28/2018 SURGEON: Refugio Reese MD AUXILIARY EQUIPMENT TENDER: Kal Knight. PROCEDURE PERFORMED: Coronary artery bypass graft times 4 (left internal mammary to LAD, reverse saphenous vein graft from aorta to first diagonal, aorta to posterior descending artery sequenced on the posterolateral branch right coronary artery). PREOPERATIVE DIAGNOSES: Coronary artery disease with unstable angina. POSTOPERATIVE DIAGNOSES: Coronary artery disease with unstable angina. ANESTHESIA: General endotracheal anesthesia. ESTIMATED BLOOD LOSS: Total cardiopulmonary bypass with Cell Saver retransfusion. COMPLICATIONS: None. SPECIMENS: None. CONDITION: Stable. DISPOSITION: ICU. OPERATIVE FINDINGS: 1. Good quality greater saphenous vein harvested with bridging incision from the right lower leg, significantly better than the vein mapping of 2-3 mm vein. The portion at the knee was small and thin walled, but this was not required for the bypasses performed. 2. Good quality left internal mammary artery with dense adhesions to the inner sternal table. The LAD was severely diseased throughout and the distal vessel was 2.0-mm proximally and 1.5 going distally with good Doppler signal after anastomosis and after reversal of heparin. 3. The first diagonal vessel was a 2.0-mm vessel with severe disease. 4. Posterior descending artery was 2.0-mm with severe disease. 5. Posterolateral branch was 1.5-1.75 mm. 6. Relatively normal-appearing, hard, somewhat fatty. Transesophageal echocardiography was normal except for trace mitral regurgitation before and after cardiopulmonary bypass. 7. The aberrant circumflex only gave off 2 very small obtuse marginal branches, not amenable for bypass. OPERATIVE INDICATION: Coronary artery disease. DESCRIPTION OF PROCEDURE: The patient was brought to the operating suite. General anesthesia was obtained. The patient was prepped and draped. Greater saphenous vein harvested in the right lower extremity utilizing bridging incisions. Side branches were divided with clips. Vessel was ligated OPERATIVE REPORT [id number] RANJEET REED proximally and distally removed. Side branches were tied. Leg was later closed in 2 layers and a drain was placed. Mediastinotomy incision was made. Subcutaneous tissue was divided with electrocautery. The sternum was divided with a saw. Left hemisternum was elevated. Left pleural cavity was entered. Left internal mammary artery and vein was taken down as a pedicle graft. Sternal retractor was placed. Pericardium was opened. Heparin was given. Aorta was cannulated. Dual-stage venous cannula was inserted. Internal mammary was clipped distally and made ready for anastomosis. Activated clotting time was appropriately elevated and the patient was placed on cardiopulmonary bypass. Sites for distal anastomosis were selected. Distal anastomosis was performed in standard technique. Proximal anastomosis with single cross-clamp technique. Aortic root was de-aired. Crossclamp removed. Proximal anastomoses tied down. Vein grafts de-aired and flow restored. Proximal and distal anastomotic sites inspected for bleeding. The patient was fully rewarmed, weaned from cardiopulmonary bypass and was stable. The patient was decannulated. The cannula sites were oversewn. Protamine was given. Thorough irrigation was undertaken. The graft lay appropriately. A drain was placed in the mediastinum and left pleural cavity. Atrial and ventricular pacing wires were placed. Pericardial fat was loosely approximated in the midline. Left chest was evacuated and irrigated. The internal mammary harvest site was inspected for bleeding. Sternum was closed with wires. Fascia was closed. Subcutaneous tissue was closed. Skin was closed. Dermabond was placed. The needle and sponge counts were reported as correct. The patient was taken to the ICU in stable condition. TRANSINT:[id number] Voice Confirmation ID: [id number] DOCUMENT ID: [id number] REFUGIO REESE MD at 0746 CC: [id number] DICTATION DATE: 07/28/18 141 SURGERY TECH: 07/28/18 1607 ADM IN [place] [id number] [place] [address]
--- NOTE | 2018-07-29 10:39 | TEE ---
PATIENT:RANJEET REED MEDICAL RECORD: [id number] LOCATION:[place] [address] AGE OF PATIENT: 73 ADMISSION DATE: 07/25/18 SEX: M REFERRING PHYSICIAN: INTERPRETING PHYSICIAN: CORI EL MD TRANSESOPHAGEAL ECHOCARDIOGRAM Date: 07/28/18 NESTOR CHARGE Y INDICATIONS: PREMEDICATIONS: PATIENT'S RESPONSE PROCEDURE DOPPLER MEASUREMENTS: LVIT LA PA RA LVOT RVOT Asc. Ao AV Gradient Peak AV Mean AV Area MV Gradient Peak MV Mean MV Area INTERPRETATION: Doppler: 2-D: COLOR FLOW DOPPLER NORMAL SALINE STUDY: MISCELLANOUS: LVD:3.4 LVS:2.1 DIAGNOSIS: PLAN: Window Display Designer:Kasey Garibay Device Engineer: Josi AKBAR COMMENTS: DATE OF SERVICE: 07/28/2018 PROCEDURE: Transesophageal echo evaluation of valvular structures during bypass surgery. FINDINGS 1. Left ventricular chamber size is within normal limits. Left ventricular systolic function is normal. Overall ejection fraction estimated at 60%. 2. Left atrium, right atrium, and right ventricular chamber sizes are within TRANSESOPHAGEAL ECHOCARDIOGRAM REPORT [id number] RANJEET REED normal limits. 3. Valvular structures have normal structure and motion. 4. Doppler interrogation reveals only trace mitral regurgitation, no other valvular insufficiency or stenosis. 5. No evidence of pericardial effusion or left ventricular thrombus. TRANSINT:[id number] Voice Confirmation ID: [id number] DOCUMENT ID: [id number] at [id number] CC: [id number] DICTATION DATE: 07/28/18 1131 FUR COAT SEWER: 07/29/18 0424 [place] [address]
[2018-07-30] VITALS (23 sets, daily range): BP systolic 107–161; BP diastolic 41–95
[2018-07-30 06:00] LABS: HEMATOCRIT 36.7 % (42.0-54.0); HEMOGLOBIN 11.8 g/dL (13.5-17.5); MCH 31.1 pg (26.0-34.0); MCHC 32.2 g/dL (31.0-37.0); MEAN PLATELET VOLUME 10.1 fL (7.4-10.4); RBC 3.79 10x6/uL (4.20-6.10); RDW 13.7 % (11.5-14.5); WBC 12.8 10x3/uL (4.8-10.8)
[2018-07-30 06:03] LABS: MCV 96.8 fL (80.0-100.0)
[2018-07-30 06:21] LABS: ALBUMIN 2.9 g/dL (3.4-5.0); ANION GAP 9.6 mmol/L (8-16); BILIRUBIN - TOTAL 0.86 mg/dL (0.2-1.3); CALCIUM 8.2 mg/dL (8.5-10.1); CREATININE - SERUM 1.1 mg/dL (0.6-1.3); POTASSIUM - SERUM 4.6 mmol/L (3.5-5.1); PROTEIN - SERUM 5.9 g/dL (6.4-8.2)
[2018-07-31] VITALS (24 sets, daily range): BP systolic 115–155; BP diastolic 52–70
[2018-07-31 05:48] LABS: HEMATOCRIT 36.2 % (42.0-54.0); HEMOGLOBIN 11.7 g/dL (13.5-17.5); MCH 31.2 pg (26.0-34.0); MCHC 32.3 g/dL (31.0-37.0); MCV 96.5 fL (80.0-100.0); MEAN PLATELET VOLUME 9.9 fL (7.4-10.4); RBC 3.75 10x6/uL (4.20-6.10); RDW 13.4 % (11.5-14.5); WBC 10.3 10x3/uL (4.8-10.8)
[2018-07-31 06:05] LABS: ALBUMIN 2.8 g/dL (3.4-5.0); ALKALINE PHOSPHATASE 50 U/L (46-116); ALT (SGPT) 31 U/L (10-68); BILIRUBIN - TOTAL 0.79 mg/dL (0.2-1.3); CALC OSMOLALITY 289 mosm/kg (275-300); CALCIUM 8.8 mg/dL (8.5-10.1); CARBON DIOXIDE 29.2 mmol/L (21.0-32.0); CHLORIDE - SERUM 105 mmol/L (98-107); GLUCOSE 169 mg/dL (74-106); POTASSIUM - SERUM 4.3 mmol/L (3.5-5.1); PROTEIN - SERUM 6.2 g/dL (6.4-8.2); SODIUM 142 mmol/L (136-145); UREA NITROGEN 22 mg/dL (7-18); eGFR NON AFRICAN AMERICAN 78 mL/min (90-120)
[2018-08-01] VITALS (23 sets, daily range): BP systolic 125–150; BP diastolic 54–75
[2018-08-01 06:13] LABS: HEMATOCRIT 35.2 % (42.0-54.0); HEMOGLOBIN 11.3 g/dL (13.5-17.5); MCH 31.2 pg (26.0-34.0); MCHC 32.1 g/dL (31.0-37.0); MCV 97.2 fL (80.0-100.0); MEAN PLATELET VOLUME 9.7 fL (7.4-10.4); RBC 3.62 10x6/uL (4.20-6.10); RDW 13.2 % (11.5-14.5); WBC 7.8 10x3/uL (4.8-10.8)
[2018-08-01 06:37] LABS: ALBUMIN 2.5 g/dL (3.4-5.0); ALKALINE PHOSPHATASE 47 U/L (46-116); ALT (SGPT) 34 U/L (10-68); BILIRUBIN - TOTAL 0.74 mg/dL (0.2-1.3); CALC OSMOLALITY 287 mosm/kg (275-300); CALCIUM 8.5 mg/dL (8.5-10.1); CARBON DIOXIDE 30.7 mmol/L (21.0-32.0); CHLORIDE - SERUM 106 mmol/L (98-107); CREATININE - SERUM 0.9 mg/dL (0.6-1.3); GLUCOSE 153 mg/dL (74-106); POTASSIUM - SERUM 4.6 mmol/L (3.5-5.1); PROTEIN - SERUM 5.9 g/dL (6.4-8.2); SODIUM 141 mmol/L (136-145); UREA NITROGEN 23 mg/dL (7-18); eGFR NON AFRICAN AMERICAN 88 mL/min (90-120)
[2018-08-02] VITALS (24 sets, daily range): BP systolic 118–158; BP diastolic 56–82
[2018-08-02 06:00] LABS: BASOPHILS 0 % (0-2); EOSINOPHILS 1.1 % (0-7); HEMATOCRIT 37.4 % (42.0-54.0); HEMOGLOBIN 12.1 g/dL (13.5-17.5); IMMATURE GRANULOCYTES 0.1 % (0-5); LYMPHOCYTES 21.6 % (15-50); MCHC 32.4 g/dL (31.0-37.0); MCV 95.9 fL (80.0-100.0); MEAN PLATELET VOLUME 9.6 fL (7.4-10.4); MONOCYTES 10.8 % (2-11); NEUTROPHILS 66.4 % (40-80); RDW 13.1 % (11.5-14.5); WBC 7.2 10x3/uL (4.8-10.8)
[2018-08-02 06:02] LABS: PLATELET COUNT 229 10x3/uL (130-400)
[2018-08-02 06:22] LABS: ALBUMIN 2.6 g/dL (3.4-5.0); ALKALINE PHOSPHATASE 51 U/L (46-116); ALT (SGPT) 40 U/L (10-68); BILIRUBIN - TOTAL 0.78 mg/dL (0.2-1.3); CALC OSMOLALITY 282 mosm/kg (275-300); CALCIUM 8.4 mg/dL (8.5-10.1); CARBON DIOXIDE 27.8 mmol/L (21.0-32.0); CHLORIDE - SERUM 105 mmol/L (98-107); CREATININE - SERUM 0.9 mg/dL (0.6-1.3); GLUCOSE 139 mg/dL (74-106); POTASSIUM - SERUM 4.9 mmol/L (3.5-5.1); PROTEIN - SERUM 6.2 g/dL (6.4-8.2); SODIUM 140 mmol/L (136-145); UREA NITROGEN 19 mg/dL (7-18); eGFR NON AFRICAN AMERICAN 88 mL/min (90-120)
[2018-08-03] VITALS (14 sets, daily range): BP systolic 100–160; BP diastolic 57–82
[2018-08-03 04:37] LABS: BASOPHILS 0 % (0-2); EOSINOPHILS 1.9 % (0-7); HEMOGLOBIN 12.2 g/dL (13.5-17.5); IMMATURE GRANULOCYTES 0.1 % (0-5); LYMPHOCYTES 21.8 % (15-50); MCH 31.2 pg (26.0-34.0); MCHC 33.9 g/dL (31.0-37.0); MCV 92.1 fL (80.0-100.0); MEAN PLATELET VOLUME 9.4 fL (7.4-10.4); MONOCYTES 9.5 % (2-11); NEUTROPHILS 66.7 % (40-80); PLATELET COUNT 259 10x3/uL (130-400); RBC 3.91 10x6/uL (4.20-6.10); RDW 12.7 % (11.5-14.5)
[2018-08-03 04:52] LABS: ALBUMIN 2.5 g/dL (3.4-5.0); ALKALINE PHOSPHATASE 51 U/L (46-116); ALT (SGPT) 46 U/L (10-68); BILIRUBIN - TOTAL 0.68 mg/dL (0.2-1.3); CALC OSMOLALITY 281 mosm/kg (275-300); CALCIUM 8.2 mg/dL (8.5-10.1); CARBON DIOXIDE 25.7 mmol/L (21.0-32.0); CHLORIDE - SERUM 105 mmol/L (98-107); CREATININE - SERUM 0.9 mg/dL (0.6-1.3); GLUCOSE 131 mg/dL (74-106); POTASSIUM - SERUM 4.2 mmol/L (3.5-5.1); SODIUM 140 mmol/L (136-145); UREA NITROGEN 16 mg/dL (7-18); eGFR NON AFRICAN AMERICAN 88 mL/min (90-120)
[2018-08-03] MEDS ORDERED: AMIODARONE HCL200 MG PO (13:38)
[2018-08-03] MEDS ORDERED: LISINOPRIL2.5 MG PO (13:38)
[2018-08-03] MEDS ORDERED: COLACE100 MG PO (13:38)
[2018-08-03] MEDS ORDERED: LOPRESSOR25 MG PO (13:38)
[2018-08-03] MEDS ORDERED: ASPIRIN EC81 M1 PO (13:38)
[2018-08-03] MEDS ORDERED: PERCOCET 5-3251 TAB PO (13:38)
--- NOTE | 2018-08-04 13:28 | MORECARE ---
CASE MANAGEMENT DISCHARGE SUMMARY PATIENT: RANJEET REED UNIT: [id number] ADM DATE: 07/25/18 AGE: 73 : 46 SEX: M ROOM/BED: [facility] AUTHOR: MANISH FERNANDEZ PHYSICIAN: REFERRING PHYSICIAN: SANTA REESE MD DATE OF SERVICE: 08/04/18 Discharge Plan Patient Name: RANJEET REED Facility: [facility]:[place] : 1945 Planned Disposition: Home Anticipated Discharge Date: Discharge Date: 08/03/2018 Expected LOS: Initial Reviewer: [email or web address] Initial Review Date: 07/27/2018 Generated: 08/04/18 2:28 pm Comments DCP- Discharge Planning Updated by [id number]: Reynakarla Bates on 08/04/18 12:[address] LATE ENTRY 08/03/18 @ 0948 Patient Name: RANJEET REED Encounter No: [id number] : 1945 Primary Insurance: MEDICARE A & B Anticipated DC Date: Planned Disposition: Home External Planned Provider: : D/Shanda IMM EXPLAINED AND SERVED 08/03/18 @ 0948 DCP follow-up note: Patient and family in agreement with discharge plan. No changes to plan. Case management will follow and assist as needed. Reyna Bates DCP- Discharge Planning Updated by [email or web address]: Reyna Jana on 07/27/18 4:[address] Patient Name: RANJEET REED Admission Status: ER Accout number: [id number] Admission Date: 07-25-2018 : 1945 Admission Diagnosis: Attending: SANTA REESE Current LOS: 2 Anticipated DC Date: Planned Disposition: Home Primary Insurance: MEDICARE A & B Discharge Planning Comments: CM met with patient and spouse (Akanksha) at bedside after explaining CM role and obtaining verbal consent. Patient lives at home with his Akanksha and plans to return there upon discharge. Patient feels this would be a safe discharge. CM discussed availability / needs of home health and medical equipment. Patient denies any discharge needs at this time. Patient states he will have his drive him home upon discharge. CM will continue to follow and assist as needed with discharge planning / needs. Vacuum Pan Operator: Reyna Bates DCPIA - Discharge Planning Initial Assessment Updated by [email or web address]: Reyna Bates on 07/27/18 5:11 pm * Is the patient Alert and Oriented? Yes * How many steps to enter\exit or inside your home? * PCP GRIS[facility]DA * [facility] * Preadmission Environment Home with Family * ADLs Independent * Equipment None * List name and contact numbers for known caregivers / representatives who currently or will assist patient after discharge: AKANKSHA REED- - [phone] * Verbal permission to speak to the caregivers and representatives has been obtained from the patient. Yes * Community resources currently utilized None * Additional services required to return to the preadmission environment? No * Can the patient safely return to the preadmission environment? Yes * Has this patient been hospitalized within the prior 30 days at any hospital? No Coverage Notice Reviewer: [id number] - Reyna Bates Notice Issued Date-Time: 08/03/2018 9:48 Notice Type: IM Discharge Notice Notice Delivered To: Patient Relationship to Patient: Self Lead Based Paint Technician Name: Delivery Method: HAND - Hand Delivered Rahel Days: Prior Verbal Notification: Recipient Understood Notice: Yes Recipient Signature: Yes Med Rec Note Co-signed by Attending: Coverage Notice Comment: Last DP export: 07/27/18 4:22 p Patient Name: RANJEET REED Page [id number] at 1328 All edits/amendments must be made on the electronic document DICTATION DATE: 08/04/181326 ASSISTED LIVING HOUSEKEEPER: SANDRA 08/04/18 1327 RPT#: [id number] DC DATE:08/03/18 STATUS: DIS IN [facility] [address] [place] [address] END OF REPORT
--- NOTE | 2018-08-04 13:51 | MORECARE ---
CASE MANAGEMENT DISCHARGE SUMMARY PATIENT: RANJEET REED UNIT: [id number] ADM DATE: 07/25/18 AGE: 73 : 46 SEX: M ROOM/BED: [facility] AUTHOR: MANISH FERNANDEZ PHYSICIAN: REFERRING PHYSICIAN: SANTA REESE MD DATE OF SERVICE: 08/04/18 Discharge Plan Patient Name: RANJEET REED Facility: [facility]:[place] : 1945 Planned Disposition: Home Anticipated Discharge Date: Discharge Date: 08/03/2018 Expected LOS: Initial Reviewer: [email or web address] Initial Review Date: 07/27/2018 Generated: 08/04/18 2:51 pm Comments DCP- Discharge Planning Updated by [email or web address]: Reynakarla Bates on 08/04/18 12:[address] LATE ENTRY 08/03/18 @ 0948 Patient Name: RANJEET REED Encounter No: [id number] : 1945 Primary Insurance: MEDICARE A & B Anticipated DC Date: Planned Disposition: Home External Planned Provider: : D/Shanda IMM EXPLAINED AND SERVED 08/03/18 @ 0948 DCP follow-up note: Patient and family in agreement with discharge plan. No changes to plan. Case management will follow and assist as needed. Reyna Bates DCP- Discharge Planning Updated by [email or web address]: Reyna Jana on 07/27/18 4:[address] Patient Name: RANJEET REED Admission Status: ER Accout number: [id number] Admission Date: 07-25-2018 : 1945 Admission Diagnosis: Attending: SANTA REESE Current LOS: 2 Anticipated DC Date: Planned Disposition: Home Primary Insurance: MEDICARE A & B Discharge Planning Comments: CM met with patient and spouse (Akanksha) at bedside after explaining CM role and obtaining verbal consent. Patient lives at home with his Akanksha and plans to return there upon discharge. Patient feels this would be a safe discharge. CM discussed availability / needs of home health and medical equipment. Patient denies any discharge needs at this time. Patient states he will have his drive him home upon discharge. CM will continue to follow and assist as needed with discharge planning / needs. Leather Coverer: Reyna Bates DCPIA - Discharge Planning Initial Assessment Updated by [email or web address]: Reyna Bates on 07/27/18 5:11 pm * Is the patient Alert and Oriented? Yes * How many steps to enter\exit or inside your home? * PCP [facility] * [facility] * Preadmission Environment Home with Family * ADLs Independent * Equipment None * List name and contact numbers for known caregivers / representatives who currently or will assist patient after discharge: AKANKSHA REED- - [phone] * Verbal permission to speak to the caregivers and representatives has been obtained from the patient. Yes * Community resources currently utilized None * Additional services required to return to the preadmission environment? No * Can the patient safely return to the preadmission environment? Yes * Has this patient been hospitalized within the prior 30 days at any hospital? No Coverage Notice Reviewer: [email or web address] - Reyna Bates Notice Issued Date-Time: 08/03/2018 9:48 Notice Type: IM Discharge Notice Notice Delivered To: Patient Relationship to Patient: Self Spring Upholsterer Name: Delivery Method: HAND - Hand Delivered Rahel Days: Prior Verbal Notification: Recipient Understood Notice: Yes Recipient Signature: Yes Med Rec Note Co-signed by Attending: Coverage Notice Comment: Last DP export: 08/04/18 12:28 pm Patient Name: RANJEET REED Page [id number] at 1351 All edits/amendments must be made on the electronic document DICTATION DATE: 08/04/18 1351 INTERNET SALES CONSULTANT: SANDRA 08/04/18 1351 RPT#: [id number] DC DATE:08/03/18 STATUS: DIS IN [facility] [address] [place] [address] END OF REPORT
== END 2018-08-03 14:42 | disposition home or self-care (01) | DRG 235 ==
LOC: D.ER 19:35 → D.CVICU 20:11
PROVIDERS: Family Medicine; ADMIT Thoracic Surgery (Cardiothoracic Vascular Surgery); ATTEND Thoracic Surgery (Cardiothoracic Vascular Surgery)
PROC: 02100Z9 Bypass Coronary Artery, One Artery from Left Internal Mammary, Open Approach (ICD-10-PCS; principal; 2018-07-28)
PROC: 021209W Bypass Coronary Artery, Three Arteries from Aorta with Autologous Venous Tissue, Open Approach (ICD-10-PCS; 2018-07-28)
PROC: 06BP0ZZ Excision of Right Saphenous Vein, Open Approach (ICD-10-PCS; 2018-07-28)
PROC: B24BZZ4 Ultrasonography of Heart with Aorta, Transesophageal (ICD-10-PCS; 2018-07-28)
PROC: 5A1221Z Performance of Cardiac Output, Continuous (ICD-10-PCS; 2018-07-28)
DX: I24.9 Acute ischemic heart disease, unspecified (principal); J18.9 Pneumonia, unspecified organism; I25.110 Atherosclerotic heart disease of native coronary artery with unstable angina pectoris; I10 Essential (primary) hypertension

== ENCOUNTER → 2018-08-27 12:27 | Outpatient (CLI) | payer MEDICARE, BC | END | disposition home or self-care (01) | LOC: D.LAB 12:27 | DX: J90 Pleural effusion, not elsewhere classified (principal); D64.9 Anemia, unspecified ==

== ENCOUNTER → 2018-09-10 08:07 | Outpatient (CLI) | payer MEDICARE, BC ==
[2018-07-27 12:10] VITALS: BMI 23.3
[~2018-09-10 08:07] MED LIST changes: +AMIODARONE HCL200 MG PO; +ASPIRIN EC81 M1 PO; +COLACE100 MG PO; +LISINOPRIL2.5 MG PO; +LOPRESSOR25 MG PO; +PERCOCET 5-3251 TAB PO
[2018-09-10 08:31] LABS: CREATININE - SERUM 1.2 mg/dL (0.6-1.3)
== END | disposition home or self-care (01) ==
LOC: D.LAB 08:07
PROVIDERS: ATTEND Thoracic Surgery (Cardiothoracic Vascular Surgery)
DX: R74.8 Abnormal levels of other serum enzymes (principal); Z51.81 Encounter for therapeutic drug level monitoring; Z79.811 Long term (current) use of aromatase inhibitors

== ENCOUNTER → 2019-06-30 10:17 | Outpatient (CLI) | payer MEDICARE, BC ==
[2018-07-27 12:10] VITALS: BMI 23.3
== END | disposition home or self-care (01) ==
LOC: D.HCCECHO 10:17
PROVIDERS: ATTEND Internal Medicine Cardiovascular Disease
DX: I25.10 Atherosclerotic heart disease of native coronary artery without angina pectoris (principal)